=== PATIENT | male | born 1995 | race Caucasian/White ===

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

== ENCOUNTER 2017-01-29 00:07 | Emergency (ER) | payer MEDICAID ==
[2017-01-29 00:08] VITALS: BMI 21.9
[2017-01-29 00:36] VITALS: BP 124/76; PULSE 83; RESP 16; TEMP 99.1; O2SAT 97
[2017-01-29] MEDS ORDERED: Dexamethasone 4 mg/1 ml IM ONE (02:14)
--- NOTE | 2017-01-29 02:19 | ED PDOC ---
HPI: CCC, URI, Sore Throat Time Seen by Provider: 01/29/17 01:42 Chief Complaint (Nursing): Flu-like Symptoms Chief Complaint (Provider): Sore throat and difficulty swallowing History Per: Patient History/Exam Limitations: no limitations Onset/Duration Of Symptoms: Days (4) Additional Complaint(s): Patient is a 21 y/o male with no significant past medical history presenting to the emergency department for a sore throat and difficulty swallowing ongoing for four days with associated fever, body aches, and cough. Reports feeling flu- like symptoms since 01/25/17 that has worsened. Also woke up today feeling dizzy and notes a resolved headache. Ibuprofen was taken today without any significant relief. Denies any other complaints. PCP: none provided. Past Medical History Reviewed: Historical Data, Nursing Documentation, Vital Signs Vital Signs: Last Vital Signs Temp 99.1 F 01/29/17 00:34 Pulse 83 01/29/17 00:34 Resp 16 01/29/17 00:34 BP 124/76 01/29/17 00:34 Pulse Ox 97 01/29/17 03:26 - Medical History PMH: No Chronic Diseases Denies: Diabetes, Hepatitis, HIV, HTN, Seizures, Sexually Transmitted Disease - Surgical History Surgical History: No Surg Hx - Family History Family History: States: Unknown Family Hx - Home Medications Home Medications: Ambulatory Orders Medication Instructions Recorded DiphenhydrAMINE [Benadryl] 25 mg PO Q6 PRN #20 cap 05/15/15 Prednisone 40 mg PO DAILY 3 Days tablet 05/15/15 Ibuprofen [Motrin] 1 tab PO TID PRN #30 tab 09/27/16 - Allergies Allergies/Adverse Reactions: Allergies Allergy/AdvReac Type Severity Reaction Status Date / Time No Known Allergies Allergy Verified 11/24/14 09:45 Review of Systems ROS Statement: Except As Marked, All Systems Reviewed And Found Negative Constitutional: Positive for: Fever, Other (body aches) ENT: Positive for: Throat Pain, Other (difficulty swallowing) Respiratory: Positive for: Cough Neurological: Positive for: Headache (resolved), Dizziness Physical Exam - Reviewed Nursing Documentation Reviewed: Yes Vital Signs Reviewed: Yes - Physical Exam Appears: Positive for: Well, Non-toxic, No Acute Distress Head Exam: Positive for: ATRAUMATIC, NORMAL INSPECTION, NORMOCEPHALIC Skin: Positive for: Normal Color, Warm, Dry Eye Exam: Positive for: Normal appearance ENT: Positive for: Pharyngeal Erythema (mild). Negative for: Tonsillar Exudate Neck: Positive for: Normal Cardiovascular/Chest: Positive for: Regular Rate, Rhythm Respiratory: Negative for: Accessory Muscle Use, Respiratory Distress Extremity: Positive for: Normal ROM Lymphatic: Positive for: Adenopathy (anterior cervical) Neurologic/Psych: Positive for: Alert, Oriented (x3) - ECG O2 Sat by Pulse Oximetry: 97 (RA) Pulse Ox Interpretation: Normal Medical Decision Making Medical Decision Making: Time: 02:13 Initial impression: Tonsillitis Differential diagnoses include but not limited to strep, viral tonsillitis, and influenza. Initial plan: Dexamethasone 4 mg IM Ultram 50 mg PO Influenza test Rapid Strep test Reevaluation 02:39 Throat culture ordered. 03:20 Patient is stable for discharge. Instructed patient to follow up with referred doctor and to return to ED is symptoms worsen. Clinical impression: Tonsillitis and viral syndrome Scribe Attestation: Documented by Radha Weaver, acting as a scribe for Manuela Carvajal MD. Provider Scribe Attestation: All medical record entries made by the Scribe were at my direction and personally dictated by me. I have reviewed the chart and agree that the record accurately reflects my personal performance of the history, physical exam, medical decision making, and the department course for this patient. I have also personally directed, reviewed, and agree with the discharge instructions and disposition. Disposition - Clinical Impression Clinical Impression: Tonsillitis, Viral syndrome - Patient ED Disposition Is Patient to be Admitted: No Doctor Will See Patient In The: Office Counseled Patient/Family Regarding: Diagnosis, Need For Followup - Disposition Referrals: Lizette Ohaar MD [Primary Care Provider] - Disposition: Routine/Home Disposition Time: 03:20 Condition: STABLE Forms: [employer] (Danish)
[2017-01-29] MEDS ORDERED: Dexamethasone 4 mg/1 ml ONE (02:31)
== END 2017-01-29 03:47 | disposition home or self-care (01) ==
LOC: H.ER 00:07
DX: J03.90 Acute tonsillitis, unspecified (principal); R13.10 Dysphagia, unspecified; B34.9 Viral infection, unspecified
CPT/HCPCS: 87070; 87430; 87804; 96372; 99281; J1100

== ENCOUNTER 2017-04-16 19:48 | Emergency (ER) | payer MEDICAID ==
[2017-04-16 19:48] VITALS: BMI 21.9
[2017-04-16 21:28] VITALS: BP 108/70; PULSE 66; RESP 16; TEMP 98; O2SAT 99
--- NOTE | 2017-04-16 22:19 | ED PDOC ---
HPI: Chest Pain Time Seen by Provider: 04/16/17 21:31 Chief Complaint (Nursing): ENT Problem Chief Complaint (Provider): Chest pain, intermittent History Per: Patient History/Exam Limitations: no limitations Onset/Duration Of Symptoms: Days Current Symptoms Are (Timing): Intermittent Episodes Additional Complaint(s): 21 yo male with no medical problems presents with chest pain on/off for months. PT states it was not often so he did not see a doctor but it has been happening more frequently. Pt states it feels like a clenching sensation in the center part. Non-radiating. No SOB or diaphoresis. PT reports it worse at home, unrelated to laying down. Pt also reports feeling dizziness sometimes in the morning which has been happening frequently. Past Medical History Reviewed: Historical Data, Nursing Documentation, Vital Signs Vital Signs: Last Vital Signs Temp 98.0 F 04/16/17 21:25 Pulse 66 04/16/17 21:25 Resp 16 04/16/17 21:25 BP 108/70 04/16/17 21:25 Pulse Ox 99 04/16/17 22:19 - Medical History PMH: No Chronic Diseases Denies: Diabetes, Hepatitis, HIV, HTN, Seizures, Sexually Transmitted Disease - Surgical History Surgical History: No Surg Hx - Family History Family History: States: Unknown Family Hx - Living Arrangements Living Arrangements: With Family - Social History Current smoker - smoking cessation education provided: No - Home Medications Home Medications: Ambulatory Orders Medication Instructions Recorded DiphenhydrAMINE [Benadryl] 25 mg PO Q6 PRN #20 cap 05/15/15 Prednisone 40 mg PO DAILY 3 Days tablet 05/15/15 Ibuprofen [Motrin] 1 tab PO TID PRN #30 tab 09/27/16 Benzocaine/Menthol [Cepacol Sore 1 each MM TID #15 lozenge 01/29/17 Throat Lozenge] Ibuprofen [Motrin] 600 mg PO TID #15 tab 01/29/17 Famotidine [Pepcid] 20 mg PO ONCE #28 tab 04/17/17 - Allergies Allergies/Adverse Reactions: Allergies Allergy/AdvReac Type Severity Reaction Status Date / Time No Known Allergies Allergy Verified 11/24/14 09:45 Review of Systems ROS Statement: Except As Marked, All Systems Reviewed And Found Negative Constitutional: Negative for: Fever, Chills Cardiovascular: Positive for: Chest Pain, Light Headedness Physical Exam - Reviewed Nursing Documentation Reviewed: Yes Vital Signs Reviewed: Yes - Physical Exam Appears: Positive for: Well, Non-toxic, No Acute Distress Head Exam: Positive for: ATRAUMATIC, NORMAL INSPECTION, NORMOCEPHALIC Skin: Positive for: Normal Color, Warm, DRY Eye Exam: Positive for: Normal appearance, EOMI, PERRL ENT: Positive for: Normal ENT Inspection Neck: Positive for: Normal, Painless ROM Cardiovascular/Chest: Positive for: Regular Rate, Rhythm Respiratory: Positive for: CNT, Normal Breath Sounds Gastrointestinal/Abdominal: Positive for: Normal Exam, Bowel Sounds, Soft Back: Positive for: Normal Inspection Extremity: Positive for: Normal ROM Neurologic/Psych: Positive for: Alert, Oriented - Laboratory Results Result Diagrams: 04/16/17 23:23 04/16/17 23:23 - ECG O2 Sat by Pulse Oximetry: 99 Medical Decision Making Medical Decision Making: CXR normal. Disposition - Clinical Impression Clinical Impression: Atypical chest pain - Patient ED Disposition Is Patient to be Admitted: No Counseled Patient/Family Regarding: Diagnosis, Need For Followup, Rx Given - Disposition Disposition: Routine/Home Disposition Time: 00:14 Condition: GOOD Prescriptions: Famotidine [Pepcid] 20 mg PO ONCE #28 tab Instructions: Chest Pain (DC) Forms: [employer] (Cameroonian)
[2017-04-16 23:29] LABS: BASO # 0.1 K/uL (0.0-0.2); BASO % 1.1 % (0.0-2.0); EOS # 0.1 K/uL (0.0-0.7); EOS % 2.5 % (0.0-4.0); HEMOGLOBIN 13.5 g/dL (12.0-18.0); LYMPH # 2.5 K/uL (1.0-4.3); LYMPH % 44.3 % (20.0-40.0); MEAN CELL VOLUME 85.5 fl (80.0-94.0); MEAN CORPUSCULAR HEMOGLOBIN 28.5 pg (27.0-31.0); MEAN CORPUSCULAR HGB CONC 33.3 g/dL (33.0-37.0); MEAN PLATELET VOLUME 8.9 fl (7.2-11.7); MONO # 0.4 K/uL (0.0-0.8); MONO % 6.7 % (0.0-10.0); NEUT # 2.5 K/uL (1.8-7.0); NEUT % 45.4 % (50.0-75.0); RBC 4.74 Mil/uL (4.40-5.90); RED CELL DISTRIBUTION WIDTH 13.9 % (11.5-14.5); WHITE BLOOD COUNT 5.6 K/uL (4.8-10.8)
[2017-04-16 23:36] LABS: ALB/GLOB RATIO 1.3 (1.0-2.1); ALBUMIN 4.5 g/dL (3.5-5.0); ALT/SGPT 20 U/L (21-72); AST/SGOT 41 U/L (17-59); BLOOD UREA NITROGEN 20 mg/dl (9-20); CALCIUM 9.4 mg/dL (8.4-10.2); GFR AFRICAN-AMERICAN > 60; GFR NON-AFRICAN AMERICAN > 60
[2017-04-16 23:48] LABS: BARBITURATES, UR NEGATIVE (NEGATIVE); BENZODIAZEPINES, UR NEGATIVE (NEGATIVE); OPIATES, UR NEGATIVE (NEGATIVE); PHENCYCLIDINE, UR NEGATIVE (NEGATIVE)
--- NOTE | 2017-04-17 09:38 | RAD ---
HISTORY: pneumonia COMPARISON: 09/27/2016 TECHNIQUE: Chest PA and lateral FINDINGS: LUNGS: No active pulmonary disease. PLEURA: No significant pleural effusion identified. No pneumothorax apparent. CARDIOVASCULAR: Normal. OSSEOUS STRUCTURES: No significant abnormalities. VISUALIZED UPPER ABDOMEN: Normal. OTHER FINDINGS: None. IMPRESSION: No active disease.
--- NOTE | 2017-04-17 22:01 | CARD ---
APPROVED REPORT EKG Measurement Heart [id number] <Conclusion> Sinus bradycardia Otherwise normal ECG
== END 2017-04-17 00:31 | disposition home or self-care (01) ==
LOC: H.ER 19:48
DX: R07.89 Other chest pain (principal)

== ENCOUNTER 2017-06-13 01:31 | Emergency (ER) | payer MEDICAID ==
[2017-06-13 01:31] VITALS: BMI 21.9
[2017-06-13 01:53] VITALS: BP 113/74; PULSE 66; RESP 18; TEMP 97.2; O2SAT 99
--- NOTE | 2017-06-13 02:30 | ED PDOC ---
Lower Extremity Pain/Injury Time Seen by Provider: 06/13/17 01:51 Chief Complaint (Nursing): Lower Extremity Problem/Injury Chief Complaint (Provider): right leg pain History Per: Patient History/Exam Limitations: no limitations Onset/Duration Of Symptoms: Hrs (3) Current Symptoms Are (Timing): Still Present Additional Complaint(s): 21 y/o male presents with right posterior leg pain x 3 hours. Patient states he was playing soccer and sprinting when he felt a "pop" behind his right upper leg to right above his knee. Denies numbness/weakness right lower extremity, limitation of movement. No medication taken for relief thus far. Past Medical History Reviewed: Historical Data, Nursing Documentation, Vital Signs Vital Signs: Last Vital Signs Temp 97.2 F L 06/13/17 01:42 Pulse 66 06/13/17 01:42 Resp 18 06/13/17 01:42 BP 113/74 06/13/17 01:42 Pulse Ox 99 06/13/17 01:42 - Medical History PMH: No Chronic Diseases Denies: Diabetes, Hepatitis, HIV, HTN, Seizures, Sexually Transmitted Disease - Surgical History Surgical History: No Surg Hx - Family History Family History: States: Unknown Family Hx - Home Medications Home Medications: Ambulatory Orders Medication Instructions Recorded DiphenhydrAMINE [Benadryl] 25 mg PO Q6 PRN #20 cap 05/15/15 Prednisone 40 mg PO DAILY 3 Days tablet 05/15/15 Ibuprofen [Motrin] 1 tab PO TID PRN #30 tab 09/27/16 Benzocaine/Menthol [Cepacol Sore 1 each MM TID #15 lozenge 01/29/17 Throat Lozenge] Ibuprofen [Motrin] 600 mg PO TID #15 tab 01/29/17 Famotidine [Pepcid] 20 mg PO ONCE #28 tab 04/17/17 Cyclobenzaprine [Cyclobenzaprine 10 mg PO BID PRN #14 tab 06/13/17 HCl] Naproxen [Naprosyn] 500 mg PO Q12 PRN #20 tablet 06/13/17 - Allergies Allergies/Adverse Reactions: Allergies Allergy/AdvReac Type Severity Reaction Status Date / Time No Known Allergies Allergy Verified 11/24/14 09:45 Review of Systems ROS Statement: Except As Marked, All Systems Reviewed And Found Negative Musculoskeletal: Positive for: Leg Pain (right) Physical Exam - Reviewed Nursing Documentation Reviewed: Yes Vital Signs Reviewed: Yes - Physical Exam Appears: Positive for: Well, Non-toxic, No Acute Distress Extremity: Positive for: Normal ROM, Other (tender to palpate distal right biceps femoris; no edema, ecchymosis, deformity noted. FROM. Distal NV/motor intact) Neurologic/Psych: Positive for: Alert, Oriented. Negative for: Motor/Sensory Deficits - ECG O2 Sat by Pulse Oximetry: 99 - Progress ED Course And Treament: Toradol IM Patient educated on findings, discharged with rx Naproxen, flexeril. Advised ice application, elevate Follow up PMD 2-3 days. REturn precautions given Disposition - Clinical Impression Clinical Impression: Strain of right hamstring - Patient ED Disposition Is Patient to be Admitted: No Counseled Patient/Family Regarding: Diagnosis, Need For Followup, Rx Given - Disposition Referrals: [facility] [Outside] Disposition: Routine/Home Disposition Time: 03:45 Condition: IMPROVED Prescriptions: Cyclobenzaprine [Cyclobenzaprine HCl] 10 mg PO BID PRN #14 tab PRN Reason: Muscle Spasm Naproxen [Naprosyn] 500 mg PO Q12 PRN #20 tablet PRN Reason: Pain, Moderate (4-7) Instructions: Hamstring Injury Forms: [employer] (Jordanian)
== END 2017-06-13 03:52 | disposition home or self-care (01) ==
LOC: H.ER 01:31
DX: S76.312A Strain of muscle, fascia and tendon of the posterior muscle group at thigh level, left thigh, initial encounter (principal); X50.9XXA Other and unspecified overexertion or strenuous movements or postures, initial encounter; Y92.322 Soccer field as the place of occurrence of the external cause
CPT/HCPCS: 96372; 99282; J1885

== ENCOUNTER 2018-01-08 23:45 | Emergency (ER) | payer SELFPAY ==
[2018-01-08 23:46] VITALS: BMI 21.9
--- NOTE | 2018-01-09 00:48 | ED PDOC ---
HPI: CCC, URI, Sore Throat Time Seen by Provider: 01/09/18 00:09 Chief Complaint (Nursing): ENT Problem Chief Complaint (Provider): ENT Problem History Per: Patient History/Exam Limitations: no limitations Onset/Duration Of Symptoms: Days (x2 weeks) Associated Symptoms: Fever, Sore Throat, Cough Additional Complaint(s): Kalin Pastor is a 22 year old male with no past medical history, who presents to the emergency department complaining of sore throat and cough, associated with mild headache and intermittent fever and chest pain, onset x2 weeks. Patient states he has taken Tylenol and Motrin but has not seen improvement so stopped. He also noticed to have small amounts of blood in his cough and has had a nose bleed. Patient was seen by PMD, who prescribed him amoxicillin and gave him a prescription for a work up including x-ray, labs, and TB test which was done on saturday. Patient further states that he missed his appointment with his PMD today, prompting him to come today to the ED. PMD: Douglas Pichardo Past Medical History Reviewed: Historical Data, Nursing Documentation, Vital Signs Vital Signs: Last Vital Signs Temp 98.3 F 01/08/18 23:47 Pulse 78 01/08/18 23:47 Resp 17 01/08/18 23:47 BP 130/82 01/08/18 23:47 Pulse Ox 98 01/08/18 23:47 - Medical History PMH: Denies: Diabetes, Hepatitis, HIV, HTN, Seizures, Sexually Transmitted Disease - Surgical History Surgical History: No Surg Hx - Family History Family History: States: Unknown Family Hx - Home Medications Home Medications: Ambulatory Orders Medication Instructions Recorded DiphenhydrAMINE [Benadryl] 25 mg PO Q6 PRN #20 cap 05/15/15 Prednisone 40 mg PO DAILY 3 Days tablet 05/15/15 Ibuprofen [Motrin] 1 tab PO TID PRN #30 tab 09/27/16 Benzocaine/Menthol [Cepacol Sore 1 each MM TID #15 lozenge 01/29/17 Throat Lozenge] Ibuprofen [Motrin] 600 mg PO TID #15 tab 01/29/17 Famotidine [Pepcid] 20 mg PO ONCE #28 tab 04/17/17 Cyclobenzaprine [Cyclobenzaprine 10 mg PO BID PRN #14 tab 06/13/17 HCl] Naproxen [Naprosyn] 500 mg PO Q12 PRN #20 tablet 06/13/17 - Allergies Allergies/Adverse Reactions: Allergies Allergy/AdvReac Type Severity Reaction Status Date / Time No Known Allergies Allergy Verified 11/24/14 09:45 Review of Systems ROS Statement: Except As Marked, All Systems Reviewed And Found Negative Constitutional: Positive for: Fever ENT: Positive for: Throat Pain Cardiovascular: Positive for: Chest Pain Respiratory: Positive for: Cough, Other (nose bleed) Neurological: Positive for: Headache Physical Exam - Reviewed Nursing Documentation Reviewed: Yes Vital Signs Reviewed: Yes - Physical Exam Appears: Positive for: Non-toxic, No Acute Distress Head Exam: Positive for: ATRAUMATIC, NORMOCEPHALIC Eye Exam: Positive for: Normal appearance, EOMI, PERRL ENT: Positive for: Pharyngeal Erythema. Negative for: Tonsillar Exudate, Other (nose bleed or wounds) Cardiovascular/Chest: Positive for: Regular Rate, Rhythm. Negative for: Murmur Respiratory: Positive for: Normal Breath Sounds. Negative for: Respiratory Distress Gastrointestinal/Abdominal: Positive for: Normal Exam, Soft. Negative for: Tenderness Lymphatic: Negative for: Adenopathy - Laboratory Results Result Diagrams: 01/09/18 01:05 01/09/18 01:05 - ECG O2 Sat by Pulse Oximetry: 98 (RA) Pulse Ox Interpretation: Normal Medical Decision Making Medical Decision Making: Initial Time: 00:23 Initial Impression: Sore throat, cough, and fever Differential diagnosis includes but not limited to viral syndrome, strep throat, pneumonia, and influenza Initial Plan: --BMP --CBC with differential --Chest x-ray --Rapid strep --Influenza A B --Provider examined the left forearm on the site of the PPD injection and found it to be negative. Scribe Attestation: Documented by Bravo Bergman, acting as a scribe for Manuela Carvajal MD. Provider Scribe Attestation: All medical record entries made by the Scribe were at my direction and personally dictated by me. I have reviewed the chart and agree that the record accurately reflects my personal performance of the history, physical exam, medical decision making, and the department course for this patient. I have also personally directed, reviewed, and agree with the discharge instructions and disposition. Disposition - Clinical Impression Clinical Impression: Nosebleed, symptom, Sore throat - Patient ED Disposition Is Patient to be Admitted: No Doctor Will See Patient In The: Office Counseled Patient/Family Regarding: Studies Performed, Diagnosis, Need For Followup - Disposition Referrals: [facility] [Outside] Disposition: Routine/Home Disposition Time: 02:59 Condition: GOOD Additional Instructions: PPD test read on Left forearm as negative at 1220 am on 01/09/2018. KALIN PASTOR, thank you for letting us take care of you today. Your provider was Manuela Carvajal MD and you were treated for SORE THROAT. The emergency medical care you received today was directed at your acute symptoms. If you were prescribed any medication, please fill it and take as directed. It may take several days for your symptoms to resolve. Return to the Emergency Department if your symptoms worsen, do not improve, or if you have any other problems. Please contact your doctor or call one of the physicians/clinics you have been referred to that are listed on the Patient Visit Information form that is included in your discharge packet. Bring any paperwork you were given at discharge with you along with any medications you are taking to your follow up visit. Our treatment cannot replace ongoing medical care by a primary care provider outside of the emergency department. Thank you for allowing the [facility] team to be part of your care today. If you had an X-Ray or CT scan: A Radiologist will review the ED reading if any change in treatment is needed we will contact you. If you had a blood, urine, or wound culture: It will take several days for the results, if any change in treatment is needed we will contact you. If you had an STI test: It will take 48 hours for the results. Please call after 1 week if you have not heard back. Instructions: Nosebleeds, Sore Throat, Adult (DC)
[2018-01-09 01:09] LABS: BASO % 0.6 % (0.0-2.0); EOS # 0.1 K/uL (0.0-0.7); EOS % 1.4 % (0.0-4.0); HEMOGLOBIN 13.9 g/dL (12.0-18.0); LYMPH % 26.1 % (20.0-40.0); MEAN CELL VOLUME 84.8 fl (80.0-94.0); MEAN CORPUSCULAR HEMOGLOBIN 27.7 pg (27.0-31.0); MEAN CORPUSCULAR HGB CONC 32.6 g/dL (33.0-37.0); MEAN PLATELET VOLUME 8.4 fl (7.2-11.7); MONO # 0.4 K/uL (0.0-0.8); MONO % 5.1 % (0.0-10.0); NEUT # 5.1 K/uL (1.8-7.0); NEUT % 66.8 % (50.0-75.0); NRBC % 0.1 % (0.0-0.0); RBC 5.01 Mil/uL (4.40-5.90); RED CELL DISTRIBUTION WIDTH 13.5 % (11.5-14.5); WHITE BLOOD COUNT 7.6 K/uL (4.8-10.8)
[2018-01-09 01:16] LABS: BLOOD UREA NITROGEN 21 mg/dl (9-20); CALCIUM 9.3 mg/dL (8.4-10.2); GFR NON-AFRICAN AMERICAN > 60
[2018-01-09 03:13] VITALS: BP 115/62; PULSE 72; RESP 18; TEMP 98.5; O2SAT 99
--- NOTE | 2018-01-09 09:02 | RAD ---
Date of service: 01/09/2018 HISTORY: Chest pain COMPARISON: 04/16/2017 TECHNIQUE: Chest PA and lateral FINDINGS: LINES AND TUBES: None. LUNG AND PLEURA: The lungs are hyperinflated and there is peribronchial thickening with chronic changes in both lungs. No focal consolidation. No pleural effusion or pneumothorax. HEART AND MEDIASTINUM: The heart is not enlarged. No aortic atherosclerotic calcification present. The hilar and mediastinal contours are within normal limits. SKELETAL STRUCTURES: The bony structures are within normal limits for the patient's age. VISUALIZED UPPER ABDOMEN: Normal. OTHER FINDINGS: None. IMPRESSION: No active pulmonary disease. COPD.
== END 2018-01-09 03:05 | disposition home or self-care (01) ==
LOC: H.ER 23:45
DX: J02.9 Acute pharyngitis, unspecified (principal); R04.0 Epistaxis

== ENCOUNTER 2018-01-23 01:28 | Emergency (ER) | payer SELFPAY ==
[2018-01-23 01:28] VITALS: BMI 21.9
--- NOTE | 2018-01-23 02:22 | ED PDOC ---
HPI: Chest Pain Time Seen by Provider: 01/23/18 01:54 Chief Complaint (Nursing): Cough, Cold, Congestion Chief Complaint (Provider): Chest Tightness History Per: Patient History/Exam Limitations: no limitations Onset/Duration Of Symptoms: Days (x3 weeks) Current Symptoms Are (Timing): Still Present Additional Complaint(s): 22 year old male with no pmhx presents to the ED for evaluation of chest pain for three weeks. Patient was seen in this ED and by his PMD two weeks ago for the same complaint accompanied by cough and sore throat, but had an extensive normal workup including CXR and labs. He returns today asking why his chest tightness has not gone away. Otherwise, denies fever, and reports his cough has improved, but still notes mild throat redness. PMD: Yves Cole Past Medical History Reviewed: Historical Data Vital Signs: Last Vital Signs Temp 98.5 F 01/23/18 01:39 Pulse 54 L 01/23/18 01:39 Resp 17 01/23/18 01:39 BP 110/60 01/23/18 01:39 Pulse Ox 99 01/23/18 01:39 - Medical History PMH: No Chronic Diseases Denies: Diabetes, Hepatitis, HIV, HTN, Seizures, Sexually Transmitted Disease - Surgical History Surgical History: No Surg Hx - Family History Family History: States: Unknown Family Hx - Social History Current smoker - smoking cessation education provided: No Alcohol: None Drugs: Denies - Home Medications Home Medications: Ambulatory Orders Medication Instructions Recorded DiphenhydrAMINE [Benadryl] 25 mg PO Q6 PRN #20 cap 05/15/15 Prednisone 40 mg PO DAILY 3 Days tablet 05/15/15 Ibuprofen [Motrin] 1 tab PO TID PRN #30 tab 09/27/16 Benzocaine/Menthol [Cepacol Sore 1 each MM TID #15 lozenge 01/29/17 Throat Lozenge] Ibuprofen [Motrin] 600 mg PO TID #15 tab 01/29/17 Famotidine [Pepcid] 20 mg PO ONCE #28 tab 04/17/17 Cyclobenzaprine [Cyclobenzaprine 10 mg PO BID PRN #14 tab 06/13/17 HCl] Naproxen [Naprosyn] 500 mg PO Q12 PRN #20 tablet 06/13/17 Albuterol HFA [Ventolin HFA 90 1 - 2 puff IH Q6 PRN #1 inhaler 01/23/18 mcg/actuation (8 g)] - Allergies Allergies/Adverse Reactions: Allergies Allergy/AdvReac Type Severity Reaction Status Date / Time No Known Allergies Allergy Verified 11/24/14 09:45 Review of Systems ROS Statement: Except As Marked, All Systems Reviewed And Found Negative ENT: Positive for: Other (mild throat redness) Cardiovascular: Positive for: Chest Pain (tightness) Respiratory: Negative for: Cough Physical Exam - Reviewed Nursing Documentation Reviewed: Yes Vital Signs Reviewed: Yes - Physical Exam Appears: Positive for: No Acute Distress Head Exam: Positive for: ATRAUMATIC, NORMOCEPHALIC Skin: Positive for: Normal Color Eye Exam: Positive for: Normal appearance ENT: Positive for: Normal ENT Inspection Neck: Positive for: Normal, Painless ROM, Supple Cardiovascular/Chest: Positive for: Regular Rate, Rhythm Respiratory: Positive for: Normal Breath Sounds Gastrointestinal/Abdominal: Positive for: Normal Exam, Soft. Negative for: Tenderness Back: Positive for: Normal Inspection Extremity: Positive for: Normal ROM Neurologic/Psych: Positive for: Alert, Oriented (x3). Negative for: Motor/Sensory Deficits - ECG O2 Sat by Pulse Oximetry: 99 (RA) Pulse Ox Interpretation: Normal Medical Decision Making Medical Decision Making: Time: 214 Initial Impression: 22 year old male with anxiety Initial Plan: --Patient reassured that his chest pain is benign and reviewed recent negative CXR and lab results with him. Encouraged patient to follow up with his PMD. Stable for discharge at this time with diagnosis of anxiety. Scribe Attestation: Documented by Aretha Echevarria, acting as a scribe for Davin Aleman MD. Provider Scribe Attestation: All medical record entries made by the Scribe were at my direction and personally dictated by me. I have reviewed the chart and agree that the record accurately reflects my personal performance of the history, physical exam, medical decision making, and the department course for this patient. I have also personally directed, reviewed, and agree with the discharge instructions and disposition. Disposition - Clinical Impression Clinical Impression: Bronchospasm, Anxiety - Patient ED Disposition Is Patient to be Admitted: No Counseled Patient/Family Regarding: Diagnosis, Need For Followup - Disposition Disposition: Routine/Home Disposition Time: 02:25 Condition: STABLE Prescriptions: Albuterol HFA [Ventolin HFA 90 mcg/actuation (8 g)] 1 - 2 puff IH Q6 PRN #1 inhaler PRN Reason: Shortness Of Breath/Cough Instructions: Anxiety, Adult (DC) Forms: [employer] (Chinese)
[2018-01-23 03:08] VITALS: BP 122/60; PULSE 68; RESP 16; TEMP 98.2; O2SAT 98
== END 2018-01-23 02:35 | disposition home or self-care (01) ==
LOC: H.ER 01:28
DX: J98.01 Acute bronchospasm (principal); F41.9 Anxiety disorder, unspecified